=== PATIENT | male | born 1990 | race African-American/Black ===

== ENCOUNTER 2019-02-04 14:57 | Emergency (ER) | payer OTHER ==
[~2019-02-04] VITALS: Ht 185.4 cm; Wt 118.2 kg
[2019-02-04 15:02] VITALS: BP 140/72
[2019-02-04] MEDS ORDERED: KETOROLAC TROMETHAMINE 10 MG TABLET PO ONE (16:00)
== END 2019-02-04 16:31 | disposition home or self-care (01) ==
LOC: EMS 14:58
DX: J06.9 Acute upper respiratory infection, unspecified (principal)

== ENCOUNTER 2020-01-26 15:57 | Emergency (ER) | payer OTHER ==
[~2020-01-26] VITALS: Ht 185.4 cm; Wt 550.0 kg
[2020-01-26 17:01] LABS: BASOPHILS % (AUTO) 0.9 % (0.0-2.0); EOSINOPHILS % (AUTO) 1.7 % (1.0-6.0); HEMATOCRIT 45.6 % (41-53); HEMOGLOBIN 14.7 g/dL (13.5-17.5); LYMPHOCYTES # (AUTO) 2.3 K/uL (1.0-4.8); LYMPHOCYTES % (AUTO) 32.3 % (22.0-44.0); MEAN CORPUSCULAR HEMOGLOBIN 29.1 pg (26.0-34.0); MEAN CORPUSCULAR HGB CONC 32.4 G/dL (31.0-37.0); MEAN CORPUSCULAR VOLUME 90 fL (80-100); MONOCYTES # (AUTO) 0.5 K/uL (0.1-1.0); MONOCYTES % (AUTO) 7.3 % (2.0-9.0); NEUTROPHILS # (AUTO) 4.2 K/uL (1.8-7.7); NEUTROPHILS % (AUTO) 57.8 % (40.0-70.0); PLATELET COUNT (AUTO) 257 K/uL (150-450); RED BLOOD CELL COUNT(AUTO) 5.06 MIL/uL (4.50-5.90); RED CELL DISTRIBUTION WIDTH 13.2 % (11.5-14.5)
[2020-01-26 17:15] LABS: ANION GAP 6 mmol/L (8-16); CARBON DIOXIDE 30 mmol/L (22-29); CHLORIDE 108 mmol/L (98-107); CREATININE 1.12 mg/dL (0.60-1.30); GLOMERULAR FILTR. RATE CALC > 60 mL/min (>60); GLUCOSE,RANDOM 98 mg/dL (70-110); POTASSIUM 4.1 mmol/L (3.5-5.1); SODIUM SERUM 144 mmol/L (136-145); UREA NITROGEN, BLOOD 17 mg/dL (7-18)
[2020-01-26 17:20] LABS: ALANINE AMINOTRANSFERASE 30 U/L (12-78); ALBUMIN 3.3 g/dL (3.4-5.0); ALKALINE PHOSPHATASE 97 U/L (46-116); ASPARTATE AMINOTRANSFERASE 20 U/L (15-37); BILIRUBIN,TOTAL 0.2 mg/dL (0.1-1.0); TOTAL PROTEIN, SERUM 6.9 g/dL (6.4-8.2)
[2020-01-26 17:23] LABS: PROTHROMBIN TIME 9.8 SEC (9.4-11.6)
[2020-01-26 17:27] LABS: B-TYPE NATRIURETIC PEPTIDE 6 pg/mL (0-100)
[2020-01-26 17:30] LABS: CALCIUM, TOTAL 8.6 mg/dL (8.8-10.5)
[2020-01-26 17:45] LABS: APPEARANCE,URINE CLEAR (CLEAR); BILIRUBIN,URINE NEGATIVE (NEGATIVE); GLUCOSE, URINE (UA) NEGATIVE (NEGATIVE); KETONES,URINE NEGATIVE (NEGATIVE); LEUKOCYTE ESTERASE ,URINE NEGATIVE (NEGATIVE); NITRATE,URINE NEGATIVE (NEGATIVE); OCCULT BLOOD,URINE NEGATIVE (NEGATIVE); PH,URINE 6.5 (5.0-8.0); PROTEIN,URINE NEGATIVE (NEGATIVE)
[2020-01-26 18:43] VITALS: BP 103/65
== END 2020-01-26 19:15 | disposition home or self-care (01) ==
LOC: EMS 15:57
DX: R07.9 Chest pain, unspecified (principal); R42 Dizziness and giddiness; H53.8 Other visual disturbances; Z03.818 Encounter for observation for suspected exposure to other biological agents ruled out
CPT/HCPCS: 87635; 93005

== ENCOUNTER 2020-06-08 14:25 | Emergency (ER) | payer OTHER ==
[~2020-06-08] VITALS: Ht 185.4 cm; Wt 113.6 kg
[2020-06-08] MEDS ORDERED: CARBAMIDE PEROXIDE 6.5% 15 ML OTIC SOLUTION AU ONE (16:15)
[2020-06-08 17:30] VITALS: BP 121/69
== END 2020-06-08 18:12 | disposition home or self-care (01) ==
LOC: EMS 14:32
DX: H61.23 Impacted cerumen, bilateral (principal)
CPT/HCPCS: 69209; Z7502; Z7610